=== PATIENT | male | born 1990 | race Caucasian/White ===

== ENCOUNTER 2017-03-03 07:42 | Emergency (ER) | payer SELFPAY ==
[~2017-03-03] VITALS: Ht 172.7 cm; Wt 79.0 kg
[~2017-03-03 07:42] MED LIST: ALBU1AER9 INH
[2017-03-03 07:47] VITALS: TEMP 36.7; Ht 172.7 cm; Wt 79.0 kg
[2017-03-03] MEDS ORDERED: VNTHFA/IN INH (07:58)
[2017-03-03] MEDS ORDERED: XYLOCAINE 1%/SOD BICARB 20 ML VIAL INFIL ONE (08:04)
[2017-03-03 08:40] VITALS: BP 119/72; PULSE 66; O2SAT 98
--- NOTE | 2017-03-03 09:24 | EMERGENCY ROOM VISIT NOTE ---
History First contact with patient: 07:58 Chief Complaint: LACERATION/CUT (SUT/DERMABOND) Stated Complaint: LAC ON R HAND Nursing Triage Summary: Pt states he cut his hand while washing a glass last night. Lac across knuckles on right hand. Still Bleeding. Pt arrived with bandage on lac. History of Present Illness The patient is a 27 year old male who presents to the Emergency Room with complaints of a laceration to his right hand. The patient was washing a drinking glass last night when it broke and cut his hand. The injury happened approximately 7.5 hours ago. The patient presents because of persistent bleeding. He denies any paresthesias, numbness or loss of function of the fingers. The patient is [id number], and reports that tetanus immunization is up-to-date. The patient rates his discomfort a 2 out of 10. Review of Systems 6 system review was performed and was negative except for pertinent positives and negatives as indicated in history of present illness Past Medical/Surgical History Medical Problems: (1) Asthma W/O Status Asthm (2) Depression (3) Lumbago (4) Scoliosis Nec Surgical Problems: (1) History of appendectomy Family History FH: cancer FH: diabetes mellitus FH: heart disease Social History Smoking Status: Never Smoker Alcohol Use: occasionally Marital Status: Housing Status: lives with family Occupation Status: employed Current/Historical Medications Scheduled Albuterol Hfa (Ventolin Hfa), 2-4 PUFFS INH Q4H Physical Exam Vital Signs Date Time Temp Pulse Resp B/P (MAP) Pulse Ox O2 Delivery O2 Flow Rate FiO2 03/03/17 08:40 66 16 119/72 98 03/03/17 07:47 36.7 68 16 123/74 97 Physical Exam CONSTITUTIONAL: Healthy and well nourished. Alert and oriented X 3 with positive affect. Patient does not appear in any acute distress. HEENT: Normocephalic, atraumatic. Pupils equal, round and reactive. NECK: Full active range of motion without discomfort. MUSCULOSKELETAL: Examination of the right hand shows a stellate 1 cm laceration over the dorsal second MCP region. No active bleeding is noted on initial pressure dressing removal. The patient is able to flex and extend the finger. Fingertip is sensory intact with capillary refill less than 2 seconds. The patient has other superficial lacerations to the dorsal base of the fifth finger and dorsal hand. These will not require suture closure. INTEGUMENTARY: No rash or other significant dermatologic conditions noted. NEUROLOGIC: No focal neurologic deficits noted. Right hand and fingers are sensory intact. Medical Decision & Procedures Medications Administered Medications (Trade) Dose Ordered Sig/Sravanthi Route Start Time Stop Time Status Last Admin Dose Admin Lidocaine HCl (Buffered Lidocaine 1% Inj) 20 ml STK-MED ONCE INFIL 03/03/17 08:04 03/03/17 08:05 DC 03/03/17 08:06 20 ML Procedure Laceration repair was performed under local anesthesia after receiving verbal consent from the patient. Using buffered 1% lidocaine without epinephrine, good local anesthesia was administered. The wound was then peripherally cleansed with iodine, then the wound itself was irrigated with 100 mL of normal saline. Exploration of the wound does not show any exposure of the underlying tendons, vasculature or joint space. The wound was then approximated using 5-0 nylon simple interrupted sutures. A bacitracin pressure dressing was applied. ED Course Patient history and physical exam were performed. Nurse's notes were reviewed. Vital signs were reviewed and normal. Laceration repair was performed under local anesthesia. The patient was provided additional verbal and written wound care instructions. Ice and elevation for swelling. Ibuprofen or Tylenol as needed for pain. Suture removal in 12-14 days, or seek reevaluation sooner for any signs of wound infection. The patient was happy with plan of care, voiced understanding of all discharge instructions, and denied any pain at the time of discharge. Medical Decision Medication Reconcilliation Current Medication List: was personally reviewed by hi Blood Pressure Screening Patient's blood pressure: Normal blood pressure Impression Primary Impression: Laceration of right hand Departure Information Dispostion Home / Self-Care Forms HOME CARE DOCUMENTATION FORM, IMPORTANT VISIT INFORMATION Patient Instructions My [facility] Additional Instructions Keep wound clean and dry. Do not allow any crusting or dried blood to accumulate on sutures. If this occurs, use a 1:1 solution of hydrogen peroxide/ water on a Q-tip to clean the wound. Use an antibiotic ointment for 3-4 days, then let wound dry. Suture removal in 12-14 days. Return sooner for any signs of infection (increasing redness, swelling, drainage). Ice and elevate for swelling and pain. Ibuprofen 600 mg and Tylenol 1000 mg every 6 hrs as needed for pain. Problem Qualifiers Primary Impression: Laceration of right hand Encounter type: initial encounter Foreign body presence: without foreign body Qualified Codes: S61.411A - Laceration without foreign body of right hand , initial encounter
== END 2017-03-03 08:41 | disposition home or self-care (01) ==
LOC: C.EDB 07:44 → C.EDA 08:41
DX: S61.411A Laceration without foreign body of right hand, initial encounter (principal); W25.XXXA Contact with sharp glass, initial encounter; Y93.89 Activity, other specified; Y99.8 Other external cause status; J45.909 Unspecified asthma, uncomplicated; Z90.89 Acquired absence of other organs; Z83.3 Family history of diabetes mellitus